=== PATIENT | male | born 1980 | race Caucasian/White ===

== ENCOUNTER 2016-10-08 14:49 | Observation (INO) | payer BC ==
--- NOTE | ~2016-10-08 | HP ---
History And Physical [place] [id number] [facility] [place] [address] NAME: DAVID RODRIGUEZ : 76 STATUS : ADM Dipika PAT#: [id number] AGE: 35 ADM/REG DATE : 10/08/16 MR#: [id number] REPORT SERV DATE: 10/09/16 DICTATED BY: SWATHI AMES DATE: 10/09/16 REPORT STATUS : Draft TRANSCRIBED BY: FRED DATE: 10/09/16 DATE OF ADMISSION: 10/08/2016 PRIMARY CARE PROVIDER: None. CHIEF COMPLAINT: Chest pain. HISTORY OF PRESENT ILLNESS: This is a very pleasant 35-year-old white gentleman with no known history of CAD, reports one week of episodic chest pain and nausea and bilateral hand and wrist discomfort. 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 Along with the chest pain, he describes some nausea and diaphoresis and some facial tingling. He went to the work clinic. His blood pressure was found to be 150 to 160 systolic. EMS was called. The patient denies any shortness of breath, dizziness, or belching with the event. He does report an event one week ago of some nausea while he was out grilling, and since that day, he has felt bad ever since. EMS provided one sublingual nitroglycerin which improved his symptoms. At its most intense, he rates the chest pain a 5/10. At the time of interview in the [facility], he rates it a 2/10 described as a residual soreness or tightness. There is no clear exertional component. His chest pain began when he was sitting in a meeting. The patient denies any personal history of myocardial infarction, stroke, DVT, or pulmonary embolus. The patient denies any recent fever or chills. No palpitations. No syncopal episode. Consumes two 20-ounce Mountain Dews per day. No PND or orthopnea. PAST MEDICAL HISTORY: 1. Seasonal allergies. 2. GERD. 3. Positive family history for early CAD. PAST SURGICAL HISTORY: Cholecystectomy. SOCIAL HISTORY: He is with two children. He is employed in a chemical plant. He does not have a structured exercise routine. Denies tobacco or illicits. Rarely consumes alcohol. FAMILY HISTORY: Mother with a heart attack at 41, remains alive at 57. Father with hypertension. REVIEW OF SYSTEMS: A 14-point review of systems was performed, significant for HPI including snores per report with no formal sleep study. Otherwise, a complete review of systems was obtained and negative. ALLERGIES: NO KNOWN DRUG ALLERGIES. History And Physical [address] [address] NAME: DAVID RODRIGUEZ : 76 STATUS : ADM Dipika PAT#: [id number] AGE: 35 ADM/REG DATE : 10/08/16 MR#: [id number] REPORT SERV DATE: 10/09/16 DICTATED BY: SWATHI AMES DATE: 10/09/16 REPORT STATUS : Draft TRANSCRIBED BY: FRED DATE: 10/09/16 HOME MEDICINES: Claritin 10 mg daily p.r.n. PHYSICAL EXAMINATION: VITAL SIGNS: Bilateral blood pressures on arrival; right 134/84, left 124/68, this morning 115/72. Pulse 72, respirations 16, temperature 97.6, and O2 saturation 96% on room air. Height 6 feet 0 inches, weight 230 pounds, and BMI of 31. GENERAL: Cooperative, in no apparent distress. HEENT: Pupils 2 mm, sclera nonicteric. Nares patent. Moist mucous membranes. No xanthelasma. NECK: Trachea midline, no thyromegaly. No JVD. No bruits. LYMPH: No cervical lymphadenopathy. No supraclavicular lymphadenopathy. RESPIRATORY: Unlabored respirations. Breath sounds clear bilaterally to posterior auscultation. No wheezes or rhonchi. CARDIOVASCULAR: Regular rate. No murmur, rub or gallop appreciated. Extremities without edema. Pulses 2+ bilaterally. ABDOMEN: Soft, nontender, nondistended, normal bowel sounds auscultated throughout. No organomegaly. SKIN: Warm, dry extremities. No pallor, or cyanosis. PSYCHIATRIC: Appropriate affect. Alert, oriented x3. LABORATORY DATA: Troponin less than 0.02, x3. Potassium 4.0, BUN 12, creatinine 0.96, glucose 94, and magnesium 2.1. WBC 8.7, hemoglobin 15.2, hematocrit 44.0, and platelet count 221,000. EKG: Sinus rhythm. ASSESSMENT AND PLAN: 1. Substernal chest pain with atypical features. The patient has been observed in the CP[facility] overnight to rule out myocardial infarction with serial enzymes and serial EKGs and held n.p.o. We will proceed with exercise treadmill today, which may be converted to nuclear stress test if warranted. The patient will be discharged home if negative study. If anything suggestive of ischemia, Cardiology referral will be initiated. Otherwise, the patient will be asked to identify a PCP for followup to whom all records will be sent at discharge. 2. Elevated blood pressure at work, well controlled here with a systolic of 115 to 130/70. 3. Fatigue. Check a TSH and free T4. 4. Unknown cholesterol status. Check a fasting lipid panel. 5. Questionable sleep apnea. Recommend outpatient overnight pulse oximetry versus formal sleep study with PCP or oil heater installer once identified. 6. No PCP. Case management to provide list to the patient for identification of PCP. If the patient names PCP, we will attempt to arrange new patient appointment on his behalf. JE/FRED KENNY Zazueta, LIFE CONSULTANT-BC History And Physical [address] [address] NAME: DAVID RODRIGUEZ : 76 STATUS : ADM Dipika PAT#: [id number] AGE: 35 ADM/REG DATE : 10/08/16 MR#: [id number] REPORT SERV DATE: 10/09/16 DICTATED BY: SWATHI AMES DATE: 10/09/16 REPORT STATUS : Draft TRANSCRIBED BY: FRED DATE: 10/09/16 / [id number] CC: Swathi Ames MSN, LIFE CONSULTANT-BC
[2016-10-08 15:40] LABS: BASOPHILS 0.3 %; BASOPHILS ABSOLUTE 0.03 10/3/uL (0.0-0.16); EOSINOPHILS 1.4 %; EOSINOPHILS ABSOLUTE 0.12 10/3/uL (0.0-0.53); ER CBC TAT 0 Hrs 03 Mins; HEMOGLOBIN 15.2 g/dL (13.6-17.8); IMMATURE GRANULOCYTES 0.2 %; IMMATURE GRANULOCYTES ABSOLUTE 0.02 10/3/uL (0.0-0.11); LYMPHOCYTES 16.7 %; LYMPHOCYTES ABSOLUTE 1.45 10/3/uL (0.67-4.30); MEAN CORPUS HGB CONC 34.5 g/dL (32.0-36.0); MEAN CORPUSCULAR HEMOGLOB 28.8 pg (26.0-34.0); MEAN CORPUSCULAR VOLUME 83.3 fL (80-100); MEAN PLATELET VOLUME 9.8 fL (9.2-13.0); MONOCYTES 5.8 %; NEUTROPHILS 75.6 %; NEUTROPHILS ABSOLUTE 6.56 10/3/uL (2.02-8.40); PLATELET COUNT 221 10/3/uL (150-400); RBC DISTRIBUTION WIDTH 13.5 % (12.0-16.0); RED CELL COUNT 5.28 10/6/uL (4.7-6.1); WHITE BLOOD CELLS 8.7 10/3/uL (4.5-10.5)
[2016-10-08 15:42] LABS: MANUAL DIFF NO %
[2016-10-08 15:48] LABS: INTERNATIONAL NORMAL RATI 1.1 UNITS (-); PARTIAL THROMBO TIME 27.8 SEC (22.5-37.2); PROTIME (NOT ORD) 13.6 SEC (12.0-14.5)
[2016-10-08 15:56] LABS: BUN (BLOOD UREA NITROGEN) 11 MG/DL (6-23); CHEST PAIN PROFILE TAT 0 Hrs 19 Mins; CHLORIDE, SERUM 105 MMOL/L (96-112); CO2 (CARBON DIOXIDE) 28 MMOL/L (24-34); CREATININE 1.06 MG/DL (0.70-1.30); GFR AFRICAN AMERICAN 103 ML/MIN (>=60); GFR NON AFRICAN AMERICAN 89 ML/MIN (>=60); GLUCOSE, SERUM 115 MG/DL (60-99); POTASSIUM, SERUM 3.7 MMOL/L (3.5-5.3); SODIUM, SERUM 141 MMOL/L (135-148); TROPONIN I <0.02 NG/ML (<0.05)
[2016-10-08] MEDS ORDERED: CLARIT10 PO (17:47)
[2016-10-09 04:39] LABS: BUN (BLOOD UREA NITROGEN) 12 MG/DL (6-23); CHLORIDE, SERUM 107 MMOL/L (96-112); CO2 (CARBON DIOXIDE) 27 MMOL/L (24-34); CREATININE 0.96 MG/DL (0.70-1.30); GFR AFRICAN AMERICAN 117 ML/MIN (>=60); GFR NON AFRICAN AMERICAN 101 ML/MIN (>=60); GLUCOSE, SERUM 94 MG/DL (60-99); SODIUM, SERUM 141 MMOL/L (135-148)
[2016-10-09 10:26] LABS: CHOL/HDL RATIO(NOT ORDER) 4.2 (0-5); CHOLESTEROL 161 MG/DL (< 200); FREE T4 0.98 NG/DL (0.76-1.46); HDL CHOLESTEROL 38 MG/DL (> 39); LDL CHOLESTEROL 90 MG/DL (< 130); NON-HDL CHOLESTEROL 123 MG/DL (< 160); TRIGLYCERIDE 167 MG/DL (< 150)
== END 2016-10-09 12:19 | disposition home or self-care (01) ==
LOC: ER 14:49 → CDU1 17:58
PROVIDERS: Clinical Nurse Specialist; Physician Assistant
DX: R07.2 Precordial pain (principal); R53.83 Other fatigue; J30.2 Other seasonal allergic rhinitis; K21.9 Gastro-esophageal reflux disease without esophagitis; Z90.49 Acquired absence of other specified parts of digestive tract
CPT/HCPCS: 71010; 80048; 80061; 83735; 84439; 84443; 84484; 85025; 85610; 85730; 93005; 93017; 99285; A9270-GY; G0378